=== PATIENT | female | born 2000 | race Two or more races ===

== ENCOUNTER 2025-09-27 11:03 | Emergency (ER) | payer MEDICAID ==
[~2025-09-27] VITALS: Ht 157.5 cm; Wt 61.2 kg
[2025-09-27 11:22] VITALS: TEMP 98.3
[2025-09-27 11:48] LABS: PLATELET COUNT (AUTO) 316 K/uL (150-450); RED BLOOD CELL COUNT(AUTO) 4.80 MIL/uL (4.0-5.2); RED CELL DISTRIBUTION WIDTH 14.5 % (11.5-15.0); WHITE BLOOD COUNT (AUTO) 4.7 K/uL (4.3-11.0)
[2025-09-27 11:53] LABS: CALCIUM, SERUM 9.0 mg/dL (8.5-10.1); CREATININE 0.7 mg/dL (0.6-1.3); SODIUM SERUM 137.0 mmol/L (136-145); UREA NITROGEN, BLOOD 10.0 mg/dL (7-18)
[2025-09-27 12:12] LABS: APPEARANCE,URINE CLEAR (CLEAR); BLOOD, URINE Negative Ery/uL (NEGATIVE); LEUKOCYTE ESTERASE ,URINE Negative (NEGATIVE); NITRITE, URINE NEGATIVE (NEGATIVE); UGLUCOSE Negative (NEGATIVE)
[2025-09-27 12:16] LABS: PREGNANCY TEST URINE QUAL NEGATIVE (NEGATIVE)
[2025-09-27 13:21] VITALS: BP 131/87; O2SAT 100
== END 2025-09-27 12:55 | disposition home or self-care (01) ==
LOC: ER 11:08
DX: R10.32 Left lower quadrant pain (principal)
CPT/HCPCS: 36415; 76856-TC; 80048-TC; 84703-TC; 85025-TC